=== PATIENT | female | born 1985 | race African-American/Black ===

== ENCOUNTER 2024-02-02 11:51 | Emergency (ER) | payer MEDICAID ==
[~2024-02-02] VITALS: Ht 172.7 cm; Wt 91.0 kg
[2024-02-02 12:08] VITALS: BP 153/99; PULSE 81; RESP 18; O2SAT 100
[2024-02-02] MEDS ORDERED: CHLO1LIQ2 PO (14:15)
[2024-02-02] MEDS ORDERED: CLIN-194 MT (14:15)
[2024-02-02 14:27] VITALS: TEMP 98.4
[2024-02-02] MEDS: ACETAMINOPHEN 325MG TABLET PO ONE (14:27)
== END 2024-02-02 14:29 | disposition home or self-care (01) ==
LOC: ER 11:51
DX: K04.7 Periapical abscess without sinus (principal); J45.909 Unspecified asthma, uncomplicated; Z98.890 Other specified postprocedural states
CPT/HCPCS: 81025; 99283; Z7610